=== PATIENT | male | born 1990 | race Caucasian/White ===

== ENCOUNTER 2025-07-23 12:11 | Emergency (ER) | payer MEDICAID ==
[~2025-07-23] VITALS: Ht 172.7 cm; Wt 88.1 kg
[2025-07-23 12:39] VITALS: BP 116/72; PULSE 112; O2SAT 100
--- NOTE | 2025-07-23 14:03 | Physician Documentation ---
History of Present Illness ~ Chief Complaint: Headache Stated Complaint: HUAN Time Seen by MD: 13:57 HPI The patient is seen today with complaints of pain of his right upper jaw and radiating into the right side of his head. Patient states he had a wisdom tooth in the molar extracted about nine days ago and he just saw his dentist yesterday and patient states he has had issues with dry socket with these dental extractions. Patient states his dentist said that his teeth were looking that they were doing better. Patient denies any fevers or chills or nausea, vomiting, diarrhea. He has no other concern or complaint at this time. Patient states he has not slept in the last two nights because of pain of his tooth and states he is very anxious about this and states he really wants something to help him sleep at night. He has no other concern or complaint at this time. Review of Systems Constitutional: Denies: chills, fever, weakness Eyes: Denies: pain, blurred vision ENT: Denies: ear pain, nose pain, throat pain, mouth pain Respiratory: Denies: cough, shortness of breath Cardiovascular: Denies: chest pain, palpitations Gastrointestinal: Denies: abdominal pain, nausea, vomiting Genitourinary: Denies: burning, dysuria Male Genitalia: Denies: penile discharge, testicular pain Neurological: Denies: headache, dizziness Musculoskeletal: Denies: pain, swelling Integumentary: Denies: rash, lesions Allergic/Immunologic: Denies: hives, itching Hematologic/Lymphatic: Denies: no symptoms reported Psychiatric: Denies: depression, anxiety Physical Exam Vital Signs: Temperature: 98.3, Heart Rate: 112, Respiratory Rate: 16, BP: 116/72, Pulse Oximetry: 100, Weight: 88.100 Physical Exam General: Awake and Alert, no acute distress. HEENT: Patient on exam has had dental extractions of right upper wisdom tooth and adjacent molar. I do not appreciate any dry socket at this time or swelling or purulent drainage or sign of infection. Conjunctiva pink, Sclera clear, Mucus Membranes moist. Neck: Supple without masses and tenderness. Resp: Unlabored. Lungs clear to auscultation bilaterally. Heart: Regular Rate and rhythm, normal S1 and S2 without murmur, rub or gallop. Abdomen: Soft and non tender no organomegaly Extremities: No cyanosis,clubbing or edema. Skin: Warm and Dry. Progress Results/Orders Results/Orders Vital Signs 07/23/25 12:39 Temp 98.3 Pulse 112 Resp 16 B/P (MAP) 116/72 Pulse Ox 100 Medical Decision Making Findings The patient is seen today with complaints of pain of his right upper jaw and radiating into the right side of his head. Patient states he had a wisdom tooth in the molar extracted about nine days ago and he just saw his dentist yesterday and patient states he has had issues with dry socket with these dental extractions. Patient states his dentist said that his teeth were looking that they were doing better. Patient denies any fevers or chills or nausea, vomiting, diarrhea. He has no other concern or complaint at this time. Patient states he has not slept in the last two nights because of pain of his tooth and states he is very anxious about this and states he really wants something to help him sleep at night. Patient also states he was recently was diagnosed with Graves disease in his undergoing treatment currently for the. Patient is TSH and T4 drawn less than one week ago were unremarkable. T4 was very slightly low. TSH was normal. He has no other concern or complaint at this time. Patient states he was actually seen very recently at a local ER and did have lab work and a head CT scan done at that time that showed no significant abnormalities. Patient was given Toradol 30 mg IM in the ED today. Patient was given prescription for Zyprexa 10 mg to be taken by mouth at night as well as [place] 10/325 mg to be taken as needed for pain. Patient will continue taking Tylenol and ibuprofen as needed for symptomatic pain relief. Patient will make appointment with primary care provider for referral to activity director for treatment of Graves disease. Patient will return to ED with any worsening, concerning or changing symptoms. Departure Disposition: HOME / SELF CARE / HOMELESS Impression: Primary Impression: Headache Qualified Codes: G44.209 - Tension-type headache, unspecified, not intractable Additional Impression: Dry tooth socket Condition: Improved Discharge Instructions: Dental Dry Socket, [id number] Additional Instructions: Patient was given Toradol 30 mg IM in the ED today. Patient was given prescription for Zyprexa 10 mg to be taken by mouth at night as well as [place] 10/325 mg to be taken as needed for pain. Patient will continue taking Tylenol and ibuprofen as needed for symptomatic pain relief. Patient will make appointment with primary care provider for referral to activity director for tracey atment of Graves disease. Patient will return to ED with any worsening, concerning or changing symptoms. Referrals: NO PRIMARY CARE PROVIDER (PCP) Prescriptions Olanzapine (Olanzapine) 10 Mg Tablet 1 TAB PO HS for 7 Days, #7 TAB 0 Refills Prov: MELINDA MORALES 07/23/25 Hydrocodone Bit/Acetaminophen (Hydrocodone-Apap 10-325 Tablet) 10mg/325mg Tablet 1 TAB PO QID PRN PRN for pain for 3 Days, #12 TAB Prov: MELINDA MORALES 07/23/25 Signature Scribe Signature: No scribe Attestation: No scribe MELINDA MORALES PAC Jul 23, 2025 14:03
[2025-07-23] MEDS ORDERED: HYDR-3973 PO (14:06)
[2025-07-23] MEDS ORDERED: OLAN-38 PO (14:14)
[2025-07-23 14:32] VITALS: RESP 16
[2025-07-23] MEDS: ketorolac trometh 30MG/ML vial 30 MG/ML VIAL IM STA (14:32)
[2025-07-23 14:39] VITALS: TEMP 98.3
== END 2025-07-23 14:50 | disposition home or self-care (01) ==
LOC: ER 12:12
DX: R51.9 Headache, unspecified (principal); M27.3 Alveolitis of jaws
CPT/HCPCS: 96372; 99283; J1885